=== PATIENT | male | born 1940 | race Caucasian/White ===

== ENCOUNTER 2016-12-15 21:17 | Emergency (ER) | payer OTHER, MEDICAID ==
[~2016-12-15] VITALS: Ht 172.7 cm; Wt 83.0 kg
--- NOTE | 2016-12-15 21:20 | NUR ---
TO BED 5 A 76 YO MALE PATIENT BIBWIFE C/O RECTAL BLEEDING SINCE 190. COLONOSCOPY ON WEDNESDAY. PATIENT IS AAOX4, NAD NOTED. NONDIAPHORETIC. GOWNED. PLACED ON CARDIAC AND VS MONITORING. COMFORT MEASURES RENDERED.
--- NOTE | 2016-12-15 22:20 | NUR ---
started a saline lock on the lac g18, blood drawn and sent to lab.
--- NOTE | 2016-12-15 22:21 | NUR ---
CALLED NURSING SUP. FOR SHANE BED
[2016-12-15] MEDS ORDERED: IV NS 0.9% 500 ML BAG IV ONE (22:30)
[2016-12-15 22:45] LABS: BASOPHILS # (AUTO) 0.1 /CMM (0.0-0.2); BASOPHILS % (AUTO) 0.7 % (0.0-2.0); EOSINOPHILS # (AUTO) 0.4 /CMM (0.0-0.7); EOSINOPHILS % (AUTO) 3.9 % (0.0-6.0); HEMATOCRIT 35 % (39-51); HEMOGLOBIN 11.7 g/dL (13.5-17.5); LYMPHOCYTES # (AUTO) 1.9 /CMM (0.8-4.8); LYMPHOCYTES % (AUTO) 17.9 % (20.0-44.0); MEAN CORPUSCULAR HEMOGLOBIN 29 PG (26.0-33.0); MEAN CORPUSCULAR HGB CONC 34 g/dl (31.0-36.0); MEAN CORPUSCULAR VOLUME 85 fL (80-96); MONOCYTES # (AUTO) 0.4 /CMM (0.1-1.30); MONOCYTES % (AUTO) 3.9 % (2.0-12.0); NEUTROPHILS # (AUTO) 7.7 /CMM (1.8-8.9); NEUTROPHILS % (AUTO) 73.6 % (43.0-81.0); PLATELET COUNT (AUTO) 233 /CMM (150-450); RDW COEFFICIENT OF VARIATION 15.5 (11.5-15.0); RED BLOOD CELL COUNT(AUTO) 4.11 MIL/uL (4.5-6.0); WHITE BLOOD COUNT (AUTO) 10.5 K/uL (4.3-11.0)
[2016-12-15 22:58] LABS: CALCIUM, SERUM 8.7 mg/dL (8.5-10.1); CARBON DIOXIDE 26 mmol/L (21-32); CHLORIDE 107 mmol/L (98-107); CREATININE 1.5 mg/dL (0.6-1.3); GLUCOSE 247 mg/dL (74-106); POTASSIUM 4.4 mmol/L (3.5-5.1); SODIUM SERUM 140 mmol/L (136-145); UREA NITROGEN, BLOOD 29 mg/dL (7-18)
[2016-12-15 23:01] LABS: INR 1.06 (0.87-1.13)
[2016-12-15 23:02] LABS: ALANINE AMINOTRANSFERASE 24 U/L (12-78); ALBUMIN 3.1 g/dL (3.4-5.0); ALKALINE PHOSPHATASE 73 U/L (46-116); ASPARTATE AMINOTRANSFERASE 13 U/L (15-37); BILIRUBIN,DIRECT 0.1 mg/dL (0.0-0.2); BILIRUBIN,TOTAL 0.3 mg/dL (0.2-1.0); LIPASE 84 U/L (73-393); TOTAL PROTEIN, SERUM 6.1 g/dL (6.4-8.2)
--- NOTE | 2016-12-15 23:15 | NUR ---
LAB STATES LAC ACID HI AT 3.0
--- NOTE | 2016-12-15 23:28 | NUR ---
CALLED NURSING SUP. TO CANCEL BED
--- NOTE | 2016-12-15 23:51 | NUR ---
IV removed. Catheter intact and site benign. Pressure and 4x4 applied to site. No bleeding noted. Patient discharged to home in stable condition. Written and verbal after care instructions given. Patient verbalizes understanding of instruction. Patient is ambulatory with steady gait, no futher complaints.
[2016-12-16] VITALS: BP 110/55
== END 2016-12-16 00:01 | disposition home or self-care (01) ==
LOC: ER 21:26
DX: K62.5 Hemorrhage of anus and rectum (principal); Z88.0 Allergy status to penicillin
CPT/HCPCS: 36415; 71010; 74176; 80048; 80076; 83605; 83690; 85025; 85730; 86850; 93005; 99285; A4606; J7040; Z7610

== ENCOUNTER 2020-11-09 19:21 | Inpatient (IN) | payer OTHER ==
[~2020-11-09] VITALS: Ht 170.2 cm; Wt 84.8 kg
--- NOTE | 2020-11-09 19:52 | NUR ---
CALLED DR CRAIG, PAGED
--- NOTE | 2020-11-09 19:55 | NUR ---
PT BIBFAMILY C/O OF CP AND SOB EARLIER, PT STATES HIS BP AND HR WERE LOW. BP LOW 100S AND HR 30S. AT THIS TIME PT DENIES CHEST PAIN. HOOKED UP TO MONITOR. VERBALIZES FEELING BETTER THAN EARLIER.
[2020-11-09 19:57] LABS: BASOPHILS # (AUTO) 0.1 K/uL (0.0-0.2); BASOPHILS % (AUTO) 1.2 % (0.0-2.0); EOSINOPHILS % (AUTO) 6.6 % (0.0-6.0); HEMATOCRIT 44 % (39-51); HEMOGLOBIN 14.6 g/dL (13.5-17.5); LYMPHOCYTES # (AUTO) 2.5 K/uL (0.8-4.8); LYMPHOCYTES % (AUTO) 27.5 % (20.0-44.0); MEAN CORPUSCULAR HGB CONC 33 g/dl (31.0-36.0); MEAN CORPUSCULAR VOLUME 87 fL (80-96); MONOCYTES % (AUTO) 11.3 % (2.0-12.0); NEUTROPHILS % (AUTO) 53.4 % (43.0-81.0); PLATELET COUNT (AUTO) 251 K/uL (150-450); WHITE BLOOD COUNT (AUTO) 9.3 K/uL (4.3-11.0)
--- NOTE | 2020-11-09 20:00 | NUR ---
COVID SWAB TAKEN, BLOOD TAKEN SENT FOR LAB
[2020-11-09 20:07] LABS: CALCIUM, SERUM 8.8 mg/dL (8.5-10.1); CARBON DIOXIDE 27 mmol/L (21-32); CHLORIDE 106 mmol/L (98-107); CREATININE 1.4 mg/dL (0.6-1.3); GLUCOSE 116 mg/dL (74-106); SODIUM SERUM 142 mmol/L (136-145); UREA NITROGEN, BLOOD 24 mg/dL (7-18)
--- NOTE | 2020-11-09 20:16 | NUR ---
LAC #20 IV SITE ESTABLISHED
--- NOTE | 2020-11-09 20:55 | NUR ---
icu 255
[2020-11-09] MEDS ORDERED: ONDANSETRON HCL/PF 4 MG/2 ML VIAL IVP PRN (21:00)
[2020-11-09] MEDS ORDERED: IV NS 0.9% 1,000 ML IV PRN (21:00)
[2020-11-09] MEDS ORDERED: HYDROCODONE/APAP 5/325MG TABLET PO PRN (21:00)
[2020-11-09] MEDS ORDERED: Z GUARD REMEDY 2 OZ OINT TP PRN (21:00)
[2020-11-09] MEDS ORDERED: ZOLPIDEM TARTRATE 5 MG TABLET PO PRN (21:00)
[2020-11-09] MEDS ORDERED: DOPamine 400 MG/D5W 250 ML RTU BAG IV PRN (21:00)
[2020-11-09] MEDS ORDERED: MAGNESIUM HYDROXIDE 30 ML UDC PO PRN (21:00)
[2020-11-09] MEDS ORDERED: ACETAMINOPHEN 325 MG TABLET PO PRN (21:00)
[2020-11-09] MEDS ORDERED: MAG HYDROX/AL HYDROX/SIMETH 30 ML UDC PO PRN (21:00)
[2020-11-09] MEDS ORDERED: MORPHINE SULFATE INJ 2 MG/ML DISP.SYRIN IV PRN (21:00)
--- NOTE | 2020-11-09 21:00 | NUR ---
MRSA SWAB COLLECTED AND SENT TO LAB. PATIENT'S BELONGINGS LIST DONE.
[2020-11-09] MEDS ORDERED: METO50TA16 PO (23:05)
--- NOTE | 2020-11-09 23:06 | NUR ---
report given to Ed, rn
--- NOTE | 2020-11-09 23:07 | NUR ---
PT LUZ MARIA call notify for any update [phone]
--- NOTE | 2020-11-09 23:20 | NUR ---
NEW CAR INSPECTOR NOTE Received report from Jossy COLON from ER. Pt is now in bed 255, all pt. belongings accounted for. Pt is A/O x4, on 2L O2 via NC with O2 saturatins above 96%, No SOB or Resp. distress noted. Pt is currently on cardiac diet, with water pitcher at bedside and urinal at bedside. Pt is on bedside monitor with 3rd degree heart block with HR in 30's. Admitting physical assessment completed. Dopamine drip started and titrated from 1 mcg/kg/min to 2mcg/kg/min. Patient started on IVF NS 0.9% 75 ml/ hr per MD orders. Patient denies any pain at this time. Safety measures implemented: call light within reach, side rails up x3, bed locked in lowest position. No other distress noted at this time.
--- NOTE | 2020-11-09 23:23 | NUR ---
pt transferred to icu, room 255 in stable condition, per acls protocol. continuation of care handed to sandy dubon
[2020-11-09] MEDS: ENOXAPARIN SODIUM 40 MG/0.4 ML DISP.SYRIN SQ SCH (23:35)
[2020-11-10] VITALS (44 sets, daily range): BP systolic 91–164; BP diastolic 29–103
--- NOTE | 2020-11-10 01:20 | NUR ---
BENCH REPAIR TECHNICIAN NOTE Dopamine drip titrated from 2 mcg to 4 mcg to 6 mcg/kg/min. HR currently 39-43. A/O x4. Asymptomatic bradycardia. No other distress noted at this time
[2020-11-10 05:36] LABS: BASOPHILS # (AUTO) 0.1 K/uL (0.0-0.2); BASOPHILS % (AUTO) 0.5 % (0.0-2.0); EOSINOPHILS % (AUTO) 0.5 % (0.0-6.0); HEMATOCRIT 43 % (39-51); HEMOGLOBIN 14.3 g/dL (13.5-17.5); LYMPHOCYTES # (AUTO) 1.5 K/uL (0.8-4.8); LYMPHOCYTES % (AUTO) 14.2 % (20.0-44.0); MEAN CORPUSCULAR HGB CONC 33 g/dl (31.0-36.0); MEAN CORPUSCULAR VOLUME 87 fL (80-96); MONOCYTES # (AUTO) 0.7 K/uL (0.1-1.30); MONOCYTES % (AUTO) 6.7 % (2.0-12.0); NEUTROPHILS # (AUTO) 8.3 K/uL (1.8-8.9); NEUTROPHILS % (AUTO) 78.1 % (43.0-81.0); PLATELET COUNT (AUTO) 229 K/uL (150-450); RED BLOOD CELL COUNT(AUTO) 4.96 MIL/uL (4.5-6.0); WHITE BLOOD COUNT (AUTO) 10.6 K/uL (4.3-11.0)
--- NOTE | 2020-11-10 05:44 | NUR ---
GENERAL MATCHER NOTE Dopamine drip titrated from 6 mcg to 10 mcg/kg/min. Patient HR currently 36. Asymtomatic bradycardia. BP 102/60. No other distress noted.
[2020-11-10 06:02] LABS: CALCIUM, SERUM 8.2 mg/dL (8.5-10.1); CARBON DIOXIDE 24 mmol/L (21-32); CHLORIDE 105 mmol/L (98-107); CREATININE 1.6 mg/dL (0.6-1.3); GLUCOSE 146 mg/dL (74-106); MAGNESIUM 2.3 mg/dL (1.8-2.4); PHOSPHORUS 3.9 mg/dL (2.5-4.9); POTASSIUM 5.2 mmol/L (3.5-5.1); SODIUM SERUM 137 mmol/L (136-145); UREA NITROGEN, BLOOD 29 mg/dL (7-18)
[2020-11-10 06:16] LABS: CHOLESTEROL 125 mg/dL (<200); HDL CHOLESTEROL 36 mg/dL (40-60); LDL 70 mg/dL (0-99); THYROID STIMULATING HORMONE 0.608 uIU/mL (0.358-3.74); TRIGLYCERIDES 124 mg/dL (30-150)
--- NOTE | 2020-11-10 06:37 | NUR ---
ADMINISTRATIVE COORDINATOR CLOSING NOTE Pt sleeping comfortably in bed, A/O x4, on 2L O2 via NC with O2 saturatins above 95%, No SOB or Resp. distress noted. Pt is currently on cardiac diet, with water pitcher and urinal at bedside. Two episodes of emesis abiout 50 mL throughout shift, 5 mg IV Zofran given x1 with both nausea and emesis resolved. Pt remians on tele monitoring w/ 3rd degree heart block with HR in 30's; asymptomatic bradycardia and VSS. (L) AC #18 and (R) AC #18 both flushed and patent with c/d/i dressings. Dopamine drip currently running at 10 mcg/kg/min. IVF NS 0.9% running @ 75 ml/ hr. Patient denies any pain at this time. Safety measures implemented: call light within reach, side rails up x2, bed locked in lowest position. No acute distress noted at this time. Will endorse to morning shift RN.
[2020-11-10] MEDS: PANTOPRAZOLE 40 MG TABLET.DR PO SCH (07:33)
--- NOTE | 2020-11-10 07:43 | NUR ---
RN NOTE PER DR. CRAIG STOP DOPAMINE INFUSION BUT KEEP MEDICATION AT BEDSIDE AND DO NOT DC. WILL CONTINUE TO MONITOR.
--- NOTE | 2020-11-10 07:49 | NUR ---
RN NOTE PATIENT IS IN BED WITH HOB AT SEMI FOWLERS POSITION. PATIENT IS AOX4. PATIENT IS ON 2L NC WITH NO SIGNS OF LABORED BREATHING. LAC 20 IS PATENT AND INTACT. BED IS LOCKED IN THE LOWEST POSITION, 3 GUARD RAILS RAISED, CALL CORBIN WITHIN REACH, AND ALL HOSPITAL SAFETY PRECAUTIONS ARE BEING FOLLOWED. WILL CONTINUE TO MONITOR THROUGHOUT SHIFT.
[2020-11-10] MEDS ORDERED: AMLO-212 PO (07:52)
[2020-11-10] MEDS ORDERED: ATOR10TA PO (07:52)
[2020-11-10] MEDS: IV NS 0.9% 1,000 ML IV PRN ×2 (11:25→18:41)
[2020-11-10 14:28] LABS: BILIRUBIN,URINE SMALL (NEGATIVE); COLOR,URINE YELLOW (YELLOW); LEUKOCYTE ESTERASE ,URINE NEGATIVE (NEGATIVE); NITRITE, URINE NEGATIVE (NEGATIVE); PH,URINE 5.5 (5.0-8.0); PROTEIN,URINE 100 mg/dl (NEGATIVE); UGLUCOSE NEGATIVE (NEGATIVE); UROBILINOGEN,URINE 0.2 EU/dL (0.2)
[2020-11-10 14:41] LABS: CALCIUM CARBONATE CRYSTALS,UR Many /HPF (None Seen); COARSE GRANULAR CASTS,URINE Few /LPF (None Seen); FINE GRANULAR CASTS,URINE Few /LPF (None Seen); HYALINE CASTS, URINE Few /LPF (None Seen); MUCUS,URINE Many /LPF (None Seen)
[2020-11-10 14:42] LABS: BACTERIA,URINE 1+ /HPF (None Seen); RBC,URINE 0-2 /HPF (0-2); SQUAMOUS EPITHELIAL CELL,UR 0-2 /HPF (None Seen); WBC,URINE 0-2 /HPF (0-3)
[2020-11-10] MEDS: ATORVASTATIN 10 MG TABLET PO SCH (17:08)
--- NOTE | 2020-11-10 17:30 | NUR ---
RN NOTE CONSENT OBTAINED FOR PERMANENT PLACEMENT OF PACEMAKER.
--- NOTE | 2020-11-10 17:45 | NUR ---
RN NOTE RAC IV IS INFILTRATED AND HAS BEEN REMOVED.
--- NOTE | 2020-11-10 18:44 | NUR ---
RN NOTE PATIENT IS IN BED WITH HOB AT SEMI FOWLERS POSITION. PATIENT IS AOX4. PATIENT IS ON 2L NC WITH NO SIGNS OF LABORED BREATHING. LFA IV ACCESS IS PATENT AND INTACT. BED IS LOCKED IN THE LOWEST POSITION, 3 GUARD RAILS RAISED, CALL CORBIN WITHIN REACH, AND ALL HOSPITAL SAFETY PRECAUTIONS ARE BEING FOLLOWED. ALL MEDICATIONS GIVEN AND PATENT REMAINED STABLE THROUGHOUT SHIFT. WILL ENDORSE TO ARMORED MACHINE OPERATOR RN.
--- NOTE | 2020-11-10 19:25 | NUR ---
RN OPENING NOTE REC'D PT IN BED, AWAKE COMFORTABLE. PT IS ON 2L OF O2 VIA NASAL CANNULA TOLERATING WELL, NO DISTRESS NOTED. PT PRESENTS WITH SINUS BRADYCARDIA 3RD DEGREE BLOCK WITH HR 30-40 ON MONITOR. PT DENIES PAIN, CHEST PAIN, N/V. RIGHT ARM ELEVATED, HX OF INFILTRATION. LAC #20 IV SITE FLUSHED, INFUSING NS @ 125ML/HR ORDERED. PT MADE AWARE OF NPO AFTER MIDNIGHT, AWARE OF PROCEDURE TOMORROW. PT DENIES NEED FOR RESTROOM AT THIS TIME. NEEDS ATTENDED. SAFETY MEASURES IN PLACE, HOB ELEVATED SIDE RAILS UP X2 BED LOCKED IN LOWEST POSITION. CALL LIGHT WITHIN REACH. WILL CONT TO MONITOR THROUGHOUT SHIFT.
[2020-11-10] MEDS: ENOXAPARIN SODIUM 40 MG/0.4 ML DISP.SYRIN SQ SCH (20:40)
--- NOTE | 2020-11-10 20:40 | NUR ---
RN NOTE: NON ADMIN LOVENOX PT IS FOR PACEMAKER PLACEMENT, HELD 2100 LOVENOX FOR PROCEDURE TOMORROW. INFORMED DRILLER'S OFFSIDER, ED.
[2020-11-11] VITALS (40 sets, daily range): BP systolic 42–153; BP diastolic 28–99
--- NOTE | 2020-11-11 00:48 | NUR ---
RN NOTE PT REFUSES BED BATH AND COMPLETE LINEN CHANGE. PARTIAL LINENS DONE, PT WANTS TO SLEEP AT THIS TIME, PT PROVIDED WITH HYGIENE PRODUCTS FOR INDEPENDENT SELF CARE.
--- NOTE | 2020-11-11 03:00 | NUR ---
RN NOTE PT AWAKE, HELPED WITH HYGIENE CARE, ALL NEEDS ATTENDED.
[2020-11-11] MEDS: IV NS 0.9% 1,000 ML IV PRN ×2 (03:32→10:36)
[2020-11-11 04:31] LABS: BASOPHILS % (AUTO) 0.3 % (0.0-2.0); HEMATOCRIT 41 % (39-51); HEMOGLOBIN 13.3 g/dL (13.5-17.5); LYMPHOCYTES # (AUTO) 1.3 K/uL (0.8-4.8); LYMPHOCYTES % (AUTO) 14.1 % (20.0-44.0); MEAN CORPUSCULAR HGB CONC 33 g/dl (31.0-36.0); MEAN CORPUSCULAR VOLUME 87 fL (80-96); MONOCYTES # (AUTO) 0.7 K/uL (0.1-1.30); MONOCYTES % (AUTO) 7.7 % (2.0-12.0); NEUTROPHILS # (AUTO) 7.4 K/uL (1.8-8.9); NEUTROPHILS % (AUTO) 77.9 % (43.0-81.0); PLATELET COUNT (AUTO) 200 K/uL (150-450); RED BLOOD CELL COUNT(AUTO) 4.67 MIL/uL (4.5-6.0); WHITE BLOOD COUNT (AUTO) 9.6 K/uL (4.3-11.0)
[2020-11-11 04:43] LABS: CREATINE KINASE, TOTAL 95 U/L (39-308)
[2020-11-11 04:50] LABS: ALANINE AMINOTRANSFERASE 58 U/L (12-78); ALKALINE PHOSPHATASE 101 U/L (46-116); ASPARTATE AMINOTRANSFERASE 31 U/L (15-37); BILIRUBIN,TOTAL 0.6 mg/dL (0.2-1.0); CALCIUM, SERUM 7.7 mg/dL (8.5-10.1); CARBON DIOXIDE 22 mmol/L (21-32); CHLORIDE 108 mmol/L (98-107); CREATININE 1.5 mg/dL (0.6-1.3); GLUCOSE 159 mg/dL (74-106); MAGNESIUM 2.4 mg/dL (1.8-2.4); PHOSPHORUS 3.8 mg/dL (2.5-4.9); SODIUM SERUM 139 mmol/L (136-145); TOTAL PROTEIN, SERUM 6.2 g/dL (6.4-8.2); UREA NITROGEN, BLOOD 38 mg/dL (7-18)
--- NOTE | 2020-11-11 06:22 | NUR ---
RN CLOSING NOTE NO SIGNIFICANT CHANGES. PT REMAINS NPO SINCE MIDNIGHT. PT IS RESTING IN BED. STILL ON 2L LITERS OF O2 VIA NASAL CANNULA. ALL NEEDS ATTENDED. BREATHING EVEN AND UNLABORED, NO DISTRESS NOTED. ALL SAFETY MEASURES IN PLACE. WILL ENDORSE TO DAY SHIFT NURSE FOR CONTINUATION OF CARE, WILL CONT TO MONITOR UNTIL END OF SHIFT.
--- NOTE | 2020-11-11 07:20 | NUR ---
RN NOTE PATIENT OBSERVED ON BED AWAKE ALERT AND ORIENTED X4 ABLE TO VERBALIZE NEEDS, NPO FOR PERMANENT PACE MAKER PLACEMENT, PATIENT ON TELE MONITOR 3RD DEGREE HEART BLOCK SINUS BRADYCARDIA NOTED NO CHEST PAIN COMPLAINS AT THIS TIME, ON O2 VIA NC @ 2LPM TOLERATING WELL BREATHING EVEN AND UNLABORED, WITH IV GUAGE 20 ON LEFT FOREARM PATENT INFUSING NS @125 CC/HR, SAFETY MEASURE OBSERVED, CALL LIGHT WITHIN REACH , BED WHEELS LOCK, WILL CONTINUE TO MONITOR.
[2020-11-11] MEDS: PANTOPRAZOLE 40 MG TABLET.DR PO SCH (07:30)
--- NOTE | 2020-11-11 08:14 | NUR ---
RN NOTE PATIENT SEEN BY DR. RAFA MD NOTIFIED PATIENT OF PERMANENT PACEMAKER PLACEMENT TODAY. DR. CRAIG MADE AWARE PATIENT HR <40, NO COMPLAINS OF CHEST PAIN AT THIS TIME. HOLD DOPAMINE PER DR. CRAIG.
--- NOTE | 2020-11-11 08:20 | NUR ---
RN NOTE HOLD PROTONIX ORDERED.
[2020-11-11] MEDS ORDERED: IOHEXOL 240MG/ML 0 ML IV ONE (10:23)
[2020-11-11] MEDS ORDERED: LIDOCAINE HCL/MPF 1% 30 ML VIAL IJ ONE (10:23)
[2020-11-11] MEDS ORDERED: BUPIVACAINE 0.5 % PF 150 MG/30 ML VIAL ONE (10:24)
[2020-11-11] MEDS ORDERED: FENTANYL PF 100MCG/2ML AMPUL ONE (13:58)
[2020-11-11] MEDS ORDERED: MIDAZOLAM HCL 2 MG/2ML VIAL ONE (13:58)
--- NOTE | 2020-11-11 14:01 | NUR ---
RN NOTE PATIENT TRANSFERRED TO OR WITH O2 VIA NC AND TELE MONITOR FOR PERMANENT PACEMAKER PLACEMENT, PRE OP CHECKLIST DONE, CONSENT SIGNED.
[2020-11-11] MEDS ORDERED: CLINDAMYCIN 900 MG/6 ML VIAL ONE (14:17)
[2020-11-11] MEDS ORDERED: hydrALAZINE HCL IV 20 MG VIAL ONE (14:31)
--- NOTE | 2020-11-11 16:29 | NUR ---
RN NOTE PATIENT RETURNED FROM OR VTS TAKEN, HR OF 97 ON TELE MONITOR. ORDER CLARIFIED FOR LEFT ARM SLING, DIET ORDER NOTED AND CARRIED OUT.
--- NOTE | 2020-11-11 17:59 | NUR ---
RN NOTE REPORT GIVEN TO DARLENE LEE PATIENT TO TRANSFER TO ROOM 306-2.
[2020-11-11] MEDS: ATORVASTATIN 10 MG TABLET PO SCH (18:16)
--- NOTE | 2020-11-11 18:51 | NUR ---
AMUSEMENT MACHINE MECHANIC NOTE RECEIVED PATIENT IN BED, PATIENT IS A/O X4. PATIENT IS BREATHING EVENLY AND NONLABORED ON 2LPM VIA NASAL CANNULA. NO SIGNS OF DISTRESS NOTED. PATIENT DOES NOT COMPLAIN OF PAIN AT THIS TIME. PATIENT HAS TELE MONITOR SHOWING 88 BMP. PATIENT HAS IV ACCESS TO LFA # 20 G RUNNING NS @ 125ML/HR. PATIENT IS POST PACEMAKER PROCEDURE THIS AFTERNOON, SLING IN PLACE. PATIENT WAS ORIENTED TO THE ROOM AND HOW TO USE THE CALL LIGHT, BELONGINGS ACCOUNTED FOR. SAFETY MEASURES IN PLACE BED LOW LOCKED AND CALL LIGHT WITHIN REACH. WILL ENDORSE TO ONCOMING SHIFT
--- NOTE | 2020-11-11 19:05 | NUR ---
MS RN OPENING NOTES: RECEIVED PATIENT IN BED, AWAKE, A/O X4. NO S/S OF DISTRESS NOTED. NO COMPLAIN OF PAIN. CALL LIGHT WITHIN REACH. BED IN LOWEST AND LOCKED POSITION. BED ALARM ON. HOB ELEVTAED. WITH LEFT ARM SLIN ON. WITH O2 AT 2L/MIN NASAL CANNULA. URINAL AT THE BEDSIDE.
[2020-11-11] MEDS: ENOXAPARIN SODIUM 40 MG/0.4 ML DISP.SYRIN SQ SCH (21:00)
[2020-11-11 23:12] LABS: BILIRUBIN,URINE NEGATIVE (NEGATIVE); COLOR,URINE YELLOW (YELLOW); LEUKOCYTE ESTERASE ,URINE NEGATIVE (NEGATIVE); NITRITE, URINE NEGATIVE (NEGATIVE); PROTEIN,URINE NEGATIVE (NEGATIVE); UGLUCOSE NEGATIVE (NEGATIVE); UROBILINOGEN,URINE 0.2 EU/dL (0.2)
[2020-11-11 23:20] LABS: BACTERIA,URINE None seen /HPF (None Seen); RBC,URINE 81-100 /HPF (0-2); SQUAMOUS EPITHELIAL CELL,UR Few /HPF (None Seen); WBC,URINE 0-2 /HPF (0-3)
[2020-11-11 23:35] LABS: URINE TOTAL PROTEIN 15.7 mg/dL (0-11.9)
[2020-11-11 23:50] LABS: EOSINOPHIL,URINE None Seen
[2020-11-12] MEDS: IV NS 0.9% 1,000 ML IV PRN (04:26)
--- NOTE | 2020-11-12 07:30 | NUR ---
RN MS NOTES PT IN BED, AWAKE, ALERT AND VERBALLY RESPONSIVE, NOT IN DISTRESS, RESPIRATION NORMAL AND NON LABORED, IV FLUIDS INFUSING WELL, CALL LIGHT WITHIN REACH, NEEDS ATTENDED.
[2020-11-12 08:00] VITALS: BP 168/73
[2020-11-12] MEDS: PANTOPRAZOLE 40 MG TABLET.DR PO SCH (08:49)
[2020-11-12] MEDS ORDERED: AMLODIPINE BESYLATE 5 MG TABLET PO SCH (09:00)
[2020-11-12] MEDS: METOPROLOL TARTRATE 50 MG TABLET PO SCH ×2 (09:00→16:40)
--- NOTE | 2020-11-12 09:38 | NUR ---
WOUND CARE CONSULT: PT SEEN FOR SKIN ASSESSMENT AND NOTED TO HAVE BLISTERS WITH EDEMA TO RT ARM. SOME BLISTERS ARE OPEN AND SOME ARE INTACT. NO SIGN OF INFECTION NOTED. RECOMMENDATIONS MADE FOR SKIN PROTECTION AND WOUND CARE. DISCUSSED WITH NURSING STAFF. (DRESSED WITH XEROFORM, DRY GAUZE AND GENTLY WRAPPED WITH KERLIX/BURN NET). ARM ELEVATED ON PILLOW. PT TOLERATED WELL. MD IN AGREEMENT WITH PLAN OF CARE. Addendum: 11/12/20 at 0940 by GAYATHRI KATE WNDNU Amended: Links added.
[2020-11-12 11:07] LABS: *SPE A/G RATIO 1.2 (0.7-1.7); *SPE ALPHA-1-GLOBULIN 0.2 g/dL (0.0-0.4); *SPE ALPHA-2-GLOBULIN 0.7 g/dL (0.4-1.0); *SPE BETA GLOBULIN 0.9 g/dL (0.7-1.3); *SPE M-SPIKE Not Observed g/dL (Not Observed)
[2020-11-12 16:00] VITALS: BP 131/67
[2020-11-12 16:40] VITALS: BP 131/67
[2020-11-12] MEDS: ATORVASTATIN 10 MG TABLET PO SCH (16:41)
--- NOTE | 2020-11-12 18:20 | NUR ---
RN MS NOTES PT IN BED, AWAKE, ALERT AND ORIENTED, NO COMPLAINT OF PAIN OR ANY DISCOMFORT, RESPIRATIONS NORMAL, SEEN BY DR. NORRIS, DISCHARGE ORDER GIVEN, DISCHARGE AND MEDICATION INSTRUCTIONS PROVIDED TO PT AND LUZ MARIA, WOUND CARE INSTRUCTIONS AND PACEMAKER AFTER CARE INSTRUCTIONS PROVIDED TO PT AND , VERBALIZED UNDERSTANDING, BELONGINGS ACCOUNTED FOR, ASSISTED TO HOSPITAL LOBBY BY BUTTON BREAKER, LEFT HOME WITH IN STABLE CONDITION.
== END 2020-11-12 18:15 | disposition home or self-care (01) | DRG 242 ==
LOC: ER 19:21 → ICU 22:49 → MED 11-11 18:59 → TELE 11-12 05:49 → MED 11-12 08:47
PROVIDERS: ADMIT Nurse Practitioner Acute Care; ATTEND Nurse Practitioner Acute Care
PROC: 0JH606Z Insertion of Pacemaker, Dual Chamber into Chest Subcutaneous Tissue and Fascia, Open Approach (ICD-10-PCS; principal; 2020-11-11)
PROC: 02H63JZ Insertion of Pacemaker Lead into Right Atrium, Percutaneous Approach (ICD-10-PCS; 2020-11-11)
PROC: 02HK3JZ Insertion of Pacemaker Lead into Right Ventricle, Percutaneous Approach (ICD-10-PCS; 2020-11-11)
DX: I44.2 Atrioventricular block, complete (principal); N17.0 Acute kidney failure with tubular necrosis; I50.33 Acute on chronic diastolic (congestive) heart failure; R00.1 Bradycardia, unspecified; E87.5 Hyperkalemia; E78.5 Hyperlipidemia, unspecified; Z20.822 Contact with and (suspected) exposure to COVID-19; Z88.0 Allergy status to penicillin; R73.03 Prediabetes; I11.0 Hypertensive heart disease with heart failure
CPT/HCPCS: 36415; 71045-TC; 71046; 76770-TC; 80048-TC; 80053-TC; 80061-TC; 81001; 82550-TC; 82570-TC; 83735-TC; 83970; 84100-TC; 84155; 84155-TC; 84165; 84300-TC; 84439-TC; 84443-TC; 84484-TC; 85025-TC; 85610-TC; 87081-TC; 93307-TC; 97112-TC; 97116-TC; 97530-TC; A6253; A6403; C1786; C9803; G0378; J0360; J1265; J1650; J2250; J2405; J3010; J3490; J7030; Q9966

== ENCOUNTER 2020-11-15 14:54 | Emergency (ER) | payer OTHER ==
[~2020-11-15] VITALS: Ht 170.2 cm; Wt 84.4 kg
[~2020-11-15 14:54] MED LIST: AMLO-212 PO; ATOR10TA PO
--- NOTE | 2020-11-15 15:15 | NUR ---
The patient bib for "Had surgery here the IvF went wrong way- it got infected". Rates right arm pain 04/17. Denies nubness/tingling in the extremity. Will continue to monitor the patient.
--- NOTE | 2020-11-15 16:11 | NUR ---
US TECH AT THE BEDSIDE
--- NOTE | 2020-11-15 18:03 | NUR ---
CALLED LAUREN FOR READ
--- NOTE | 2020-11-15 18:25 | NUR ---
CALLED LAUREN AGAIN FOR READ.
--- NOTE | 2020-11-15 18:44 | NUR ---
AT THE BEDSIDE
--- NOTE | 2020-11-15 19:00 | NUR ---
Patient discharged to home in stable condition. Written and verbal after care instructions given. Patient verbalizes understanding of instruction.
[2020-11-15 19:01] VITALS: BP 132/80
== END 2020-11-15 19:01 | disposition home or self-care (01) ==
LOC: ER 15:04
DX: S40.821A Blister (nonthermal) of right upper arm, initial encounter (principal); I10 Essential (primary) hypertension; Z88.0 Allergy status to penicillin; Z79.899 Other long term (current) drug therapy; X58.XXXA Exposure to other specified factors, initial encounter; Y93.89 Activity, other specified; Y92.89 Other specified places as the place of occurrence of the external cause; Y99.8 Other external cause status
CPT/HCPCS: 93971-TC